=== PATIENT | female | born 1995 | race Caucasian/White ===

== ENCOUNTER 2016-05-28 11:38 | Emergency (ER) | payer OTHER ==
[2016-05-28 11:49] VITALS: BP 134/75; PULSE 78; TEMP 98.3; BMI 29.6
[2016-05-28] MEDS ORDERED: IBUPROFEN 600 MG TABLET (FP) PO ONE (12:19)
--- NOTE | 2016-05-28 12:29 | PDOC ---
History of Present Illness - General Chief Complaint: Sore Throat Stated Complaint: (DEAF) TONSILITIS, HEADACHE Time Seen by Provider: 05/28/16 11:52 History Source: Patient, Family (mother signing for patient) Exam Limitations: Physical Impairment (deaf and mute) - History of Present Illness Initial Comments: 05/28/16 12:18 21 yr female with sore throat headache for 2 days worse today. Pt has no medical history or allergies. Pt is mute mother is here signing for her as well as pt uses writing to communicate as her preference. Past History - Past Medical History Allergies/Adverse Reactions: Allergies Allergy/AdvReac Type Severity Reaction Status Date / Time No Known Allergies Allergy Verified 05/28/16 11:43 Home Medications: Ambulatory Orders Penicillin V Potassium [Pen Vee K -] 500 mg PO BID #20 tablet 05/28/16 Asthma: No Cancer: No Cardiac Disorders: No Diabetes: No HTN: No Seizures: No Thyroid Disease: No Other medical history: deaf/mute - Psycho/Social/Smoking Cessation Hx Anxiety: No Suicidal Ideation: No Smoking History: Never smoked Have you smoked in the past 12 months: No Information on smoking cessation initiated: No Hx Alcohol Use: No Drug/Substance Use Hx: No Substance Use Type: None Hx Substance Use Treatment: No Review of Systems - Review of Systems Able to Perform ROS?: Yes Is the patient limited Austrian proficient: No Constitutional: No: Symptoms Reported HEENTM: Yes: Throat Pain *Physical Exam - Vital Signs Last Vital Signs Temp Pulse Resp BP Pulse Ox 98.3 F 78 18 134/75 100 05/28/16 11:43 05/28/16 11:43 05/28/16 11:43 05/28/16 11:43 05/28/16 11:43 - Physical Exam General Appearance: Yes: Nourished, Appropriately Dressed HEENT: positive: EOMI, JADE, TMs Normal, Pharyngeal Erythema, Tonsillar Exudate , Tonsillar Erythema Neck: positive: Lymphadenopathy (R), Lymphadenopathy (L) Respiratory/Chest: positive: Lungs Clear, Normal Breath Sounds Cardiovascular: positive: Regular Rhythm, Regular Rate Musculoskeletal: positive: Normal Inspection Extremity: positive: Normal Capillary Refill, Normal Inspection Integumentary: positive: Normal Color, Warm Medical Decision Making - Medical Decision Making 05/28/16 19:01 cc: sore throat getting worse 2 days pt able to swallow well no trismus will treat for strep dc inst explained to mom and the patient *DC/Admit/Observation/Transfer Diagnosis at time of Disposition: Pharyngitis Qualifiers: Pharyngitis/tonsillitis etiology: unspecified etiology Qualified Code(s): J02.9 - Acute pharyngitis, unspecified - Discharge Dispostion Disposition: HOME Condition at time of disposition: Good - Prescriptions Prescriptions: Penicillin V Potassium [Pen Vee K -] 500 mg PO BID #20 tablet - Referrals Referrals: Jayne Heath MD [Primary Care Provider] - - Patient Instructions Additional Instructions: gargle with warm salt water 4-5 times a day soft foods for the next 24hrs lots of water to drink take motrin 600-800mg every 6hrs for pain (over the counter advil, ibuprofen, motrin) take the antibiotics for 10 days and discard your toothbrush at the end of treatment. no sharing drinks , utensils limit close contacts. follow with your primary care doctor next week as needed
[2016-05-28] MEDS ORDERED: IBUPROFEN 400 MG TABLET (FP) PO ONE (12:33)
== END 2016-05-28 12:42 | disposition home or self-care (01) ==
LOC: JERFT 11:38
DX: J02.9 Acute pharyngitis, unspecified (principal); H91.3 Deaf nonspeaking, not elsewhere classified
CPT/HCPCS: 99281-25

== ENCOUNTER 2017-05-12 11:46 | Emergency (ER) | payer OTHER ==
[2017-05-12 12:42] VITALS: BP 105/68; PULSE 71; TEMP 98.5; BMI 32.1
--- NOTE | 2017-05-12 14:21 | PDOC ---
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 no abd pain no fever or chills. pt has seen her PMD and a neurologist one year ago with no resolve. Pt states she was told there is nothing wrong however pt continues to have intermittent symptoms. no fever no chills, occasional headache relieved with advil. neg lower leg weakness neg urine or bowel dysfunction . Timing/Duration: reports: intermittent Quality: reports: mild, moderate Past History - Past Medical History Allergies/Adverse Reactions: Allergies Allergy/AdvReac Type Severity Reaction Status Date / Time No Known Allergies Allergy Verified 05/12/17 12:38 Home Medications: Ambulatory Orders NK [No Known Home Medication] 05/12/17 Asthma: No Cancer: No Cardiac Disorders: No CVA: No COPD: No DVT: No Diabetes: No HTN: No Seizures: No Thyroid Disease: No - Immunization History Immunization Up to Date: Yes - Suicide/Smoking/Psychosocial Hx Smoking History: Never smoked Have you smoked in the past 12 months: No Information on smoking cessation initiated: No Hx Alcohol Use: No Drug/Substance Use Hx: No Substance Use Type: None Hx Substance Use Treatment: No *Physical Exam - Vital Signs Last Vital Signs Temp Pulse Resp BP Pulse Ox 98.5 F 71 17 105/68 100 05/12/17 12:39 05/12/17 12:39 05/12/17 12:39 05/12/17 12:39 05/12/17 12:39 - Physical Exam General Appearance: Yes: Nourished, Appropriately Dressed HEENT: positive: EOMI, JADE, Normal ENT Inspection Neck: positive: Supple. negative: Tender Respiratory/Chest: positive: Lungs Clear, Normal Breath Sounds. negative: Chest Tender, Respiratory Distress Cardiovascular: positive: Regular Rhythm, Regular Rate Gastrointestinal/Abdominal: positive: Normal Bowel Sounds, Soft Musculoskeletal: positive: Normal Inspection Extremity: positive: Normal Capillary Refill, Normal Inspection, Normal Range of Motion Integumentary: positive: Normal Color, Dry, Warm Neurologic: positive: Fully Oriented, Alert, Normal Mood/Affect, Normal Response , Motor Strength 5/5, Finger to Nose (intact). negative: Respond to painful stimul, Responsive, EOM Palsy, Facial Droop, Numbness, Sensory Deficit, Disoriented, Depressed Affect ED Treatment Course - LABORATORY CBC & Chemistry Diagram: 05/12/17 14:50 05/12/17 14:50 Medical Decision Making - Medical Decision Making 05/12/17 14:18 cc: tingling, numbness intermittent to arms, trunk, back ,head and neck. one year or more neg chest pain neg SOB will check labs follow up with neurology I have used the deaf talk translation line 05/12/17 14:41 labs are WNL copies given to the pt and her mother in law who is able to sign with the patient. pt understands to follow up with the neurologist listed below all questions asked and answered at discharge 05/12/17 19:21 *DC/Admit/Observation/Transfer Diagnosis at time of Disposition: Paresthesia - Discharge Dispostion Disposition: HOME - Referrals Referrals: Jayne Heath MD [Primary Care Provider] - [facility] [Provider Group] - Patient Instructions Additional Instructions: follow with the neurologist for follow up call tomorrow to make appointment to see them in the office please bring copies of the lab tests with you - Post Discharge Activity
[2017-05-12 14:57] LABS: HEMATOCRIT 40.9 % (32.4-45.2); HEMOGLOBIN 13.9 GM/dL (10.7-15.3); MCH 30.2 pg (25.7-33.7); MCHC 33.8 g/dl (32.0-36.0); MEAN CELL VOLUME 89.3 fl (80-96); MEAN PLT VOLUME 9.4 fl (7.5-11.1); PLATELET COUNT 232 K/MM3 (134-434); RBC 4.59 M/mm3 (3.60-5.2); RDW 13.3 % (11.6-15.6); WHITE BLOOD COUNT 6.3 K/mm3 (4.0-10.0)
[2017-05-12 15:29] LABS: ALBUMIN 4.2 g/dl (3.4-5.0); ANION GAP 10 (8-16); BLOOD UREA NITROGEN 9 mg/dL (7-18); CALCIUM 9.2 mg/dL (8.5-10.1); CHLORIDE 101 mmol/L (98-107); CO2 26 mmol/L (21-32); CREATININE 0.7 mg/dL (0.55-1.02); GLUCOSE,RANDOM 79 mg/dL (74-106); POTASSIUM 4.1 mmol/L (3.5-5.1); SGOT/AST 35 U/L (15-37); SGPT/ALT 58 U/L (12-78); SODIUM 137 mmol/L (136-145); TOT PROT 7.9 g/dl (6.4-8.2)
[2017-05-12 15:30] LABS: ALK PHOS 107 U/L (45-117)
== END 2017-05-12 16:18 | disposition home or self-care (01) ==
LOC: JERFT 11:46
DX: R20.2 Paresthesia of skin (principal)
CPT/HCPCS: 36415; 80053; 84443; 84702; 85027; 85651; 86038; 99281-25

== ENCOUNTER 2017-10-23 00:08 | Emergency (ER) | payer OTHER ==
[2017-10-23 00:36] VITALS: BMI 30.9
[2017-10-23] MEDS ORDERED: SODIUM CHLORIDE 0.9% 500 ML INFUS.BAG IV ONE (00:41)
[2017-10-23] MEDS ORDERED: FAMOTIDINE 20 MG/50 ML IVPB 20 MG/50 ML MG IVPB ONE ×2 (00:41→01:08)
[2017-10-23] MEDS ORDERED: METOCLOPRAMIDE HCL INJECTION 10 MG/2 ML VIAL IVPUSH ONE (00:41)
--- NOTE | 2017-10-23 00:48 | PDOC ---
History of Present Illness - General Chief Complaint: Pain, Acute Stated Complaint: ABDOMINAL PAIN Time Seen by Provider: 10/23/17 00:22 History Source: Patient Exam Limitations: No Limitations - History of Present Illness Initial Comments: 10/23/17 00:42 Patient is a 22 year old female deaf c/o epigastric pain since this morning. Pain in the epgastrium is sharp, stabbing, burning and was assoc/w nausea and vomited x 2 episode. Took tums a 9am and 3 pm without relief of symptoms. Had similar episode in the pain x 3 and was diagnosed with gastritis but he pmd in [place]. PMHX: deaf PSCOHX: neg etoh, drug, cig ALL: NKDA GENERAL/CONSTITUTIONAL: [No fever or chills. No weakness. No weight change.] HEAD, EYES, EARS, NOSE AND THROAT: [No change in vision. No ear pain or discharge. No sore throat.] CARDIOVASCULAR: [No chest pain or shortness of breath.] RESPIRATORY: [No cough, wheezing, or hemoptysis.] GASTROINTESTINAL: (+) nausea, vomiting, diarrhea or constipation. No rectal bleeding.] GENITOURINARY: [No dysuria, frequency, or change in urination.] MUSCULOSKELETAL: [No joint or muscle swelling or pain. No neck or back pain.] SKIN AND BREASTS: [No rash or easy bruising.] NEUROLOGIC: [No headache, vertigo, loss of consciousness, or loss of sensation.] PSYCHIATRIC: [No depression or anxiety.] ENDOCRINE: [No increased thirst. No abnormal weight change.] HEMATOLOGIC/LYMPHATIC: [No anemia, easy bleeding, or history of blood clots.] ALLERGIC/IMMUNOLOGIC: [No hives or skin allergy. No latex allergy.] GENERAL: [The patient is awake, alert, and fully oriented, in mild distress.] HEAD: [Normal with no signs of trauma.] EYES: [Pupils equal, round and reactive to light, extraocular movements intact, sclera anicteric, conjunctiva clear.] ENT: [Ears normal, nares patent, oropharynx clear without exudates. Moist mucous membranes.] NECK: [Normal range of motion, supple without lymphadenopathy, JVD, or masses.] LUNGS: [Breath sounds equal, clear to auscultation bilaterally. No wheezes, and no crackles.] HEART: [Regular rate and rhythm, normal S1 and S2 without murmur, rub.] ABDOMEN: [Soft, tenderness epigastrum, normoactive bowel sounds. No guarding, no rebound. No masses.] EXTREMITIES: [Normal range of motion, no edema. No clubbing or cyanosis. No cords, erythema, or tenderness.] NEUROLOGICAL: [Cranial nerves II through XII grossly intact. Normal speech, normal gait.] PSYCH: [Normal mood, normal affect.] SKIN: [Warm, Dry, normal turgor, no rashes or lesions noted.] Past History - Past Medical History Allergies/Adverse Reactions: Allergies Allergy/AdvReac Type Severity Reaction Status Date / Time No Known Allergies Allergy Verified 05/12/17 12:38 Home Medications: Ambulatory Orders Famotidine [Pepcid] 20 mg PO DAILY #14 tablet 10/23/17 Sucralfate Oral Suspension [Carafate *Oral Susp*] 1 gm PO QID #30 gm 10/23/17 Asthma: No Cancer: No Cardiac Disorders: No CVA: No COPD: No DVT: No Diabetes: No HTN: No Seizures: No Thyroid Disease: No - Immunization History Immunization Up to Date: Yes - Suicide/Smoking/Psychosocial Hx Smoking History: Never smoked Have you smoked in the past 12 months: No Information on smoking cessation initiated: No Hx Alcohol Use: No Drug/Substance Use Hx: No Substance Use Type: None Hx Substance Use Treatment: No *Physical Exam - Vital Signs Last Vital Signs Temp Pulse Resp BP Pulse Ox 97.5 F L 80 20 131/90 99 10/23/17 00:35 10/23/17 00:35 10/23/17 00:35 10/23/17 00:35 10/23/17 00:35 ED Treatment Course - LABORATORY CBC & Chemistry Diagram: 10/23/17 01:10 10/23/17 03:20 Medical Decision Making - Medical Decision Making 10/23/17 00:42 Patient is a 22 year old female deaf c/o epigastric pain since this morning. Symptoms most consistent with gastritis. Bedside US done showed gallstones will get official US labs, pain meds, GI cocktail re-eval 10/23/17 02:58 Patient Full Name: ARDHA DELGADO Patient Accession No: [id number] Patient : 1995 Reason for Exam: epigastric and ruq pain Referring Physician: Patient Name: DANNY GARCIA THIS IS A PRELIMINARY REPORT FROM [facility] DATE OF SERVICE: 2017-10-23 01:37:30 IMAGES: 42 EXAM: ULTRASOUND ABDOMEN INCOMPLETE Borderline hepatomegaly. Coarse liver echotexture, possibly steatosis. Cholelithiasis without acute cholecystitis. Unremarkable right kidney and visualized aorta. Slightly prominent pancreatic tail, 2.9 cm thick, possibly artifact due to obliquity. Top normal common duct diameter, 6 mm. THIS DOCUMENT HAS BEEN ELECTRONICALLY SIGNED Sue Whitehead M.D. 10/23/2017 02:27 YVETTE Farfan. Please call [facility] [phone] ([phone]) with questions. INTERPRETING RADIOLOGIST: Sue Whitehead MD Electronically Signed: Oct 23, 2017 02:28AM EDT 10/23/17 04:33 Still c/o pain given Carafate US report discussed I discussed the physical exam findings, ancillary test results and final diagnoses with the patient. I answered all of the patient's questions. The patient was satisfied with the care received and felt comfortable with the discharge plan and treatment plan. The Patient agrees to follow up with the primary care physician within 24-72 hours. *DC/Admit/Observation/Transfer Diagnosis at time of Disposition: Nausea and vomiting Qualifiers: Vomiting type: unspecified Vomiting Intractability: unspecified Qualified Code( s): R11.2 - Nausea with vomiting, unspecified - Discharge Dispostion Disposition: HOME Condition at time of disposition: Stable - Prescriptions Prescriptions: Famotidine [Pepcid] 20 mg PO DAILY #14 tablet Sucralfate Oral Suspension [Carafate *Oral Susp*] 1 gm PO QID #30 gm - Referrals Referrals: Jayne Heath MD [Primary Care Provider] - Scottie Lemus MD [Staff Physician] - Wilmar Montez MD [Staff Physician] - - Patient Instructions Printed Discharge Instructions: DI for Gastritis Additional Instructions: Your Discharge Instructions: You must call primary care physician within 24 hours to arrange follow-up. Return to the Emergency Department with any new, persistent or worsening symptoms, for fever, nausea, vomiting, chills, SOB, dizziness or any other concerning changes that may occur. Take pepcid, maalox or omeprazole for your symptoms. - Post Discharge Activity
[2017-10-23] MEDS ORDERED: LIDOCAINE VISCOUS 2% ORAL/TOP 20 ML UNIT-DOSE CUP MM ONE (00:55)
[2017-10-23] MEDS ORDERED: MAG HYDROX/AL HYDROX/SIMETH 30 ML UNIT-DOSE CUP PO ONE (00:55)
[2017-10-23] MEDS ORDERED: METOCLOPRAMIDE HCL INJECTION 10 MG/2 ML VIAL ONE (01:07)
[2017-10-23] MEDS ORDERED: LIDOCAINE VISCOUS 2% ORAL/TOP 20 ML UNIT-DOSE CUP ONE (01:07)
[2017-10-23] MEDS ORDERED: MAG HYDROX/AL HYDROX/SIMETH 30 ML UNIT-DOSE CUP ONE (01:07)
[2017-10-23 01:30] LABS: BASO % 0.6 % (0-2.0); EOS % 0.6 % (0-4.5); HEMATOCRIT 42.7 % (32.4-45.2); HEMOGLOBIN 14.6 GM/dL (10.7-15.3); LYMPH % 34.1 % (8-40); MCH 30.9 pg (25.7-33.7); MCHC 34.1 g/dl (32.0-36.0); MEAN CELL VOLUME 90.4 fl (80-96); MEAN PLT VOLUME 9.2 fl (7.5-11.1); MONO % 8.9 % (3.8-10.2); NEUT % 55.8 % (42.8-82.8); PLATELET COUNT 247 K/MM3 (134-434); RBC 4.73 M/mm3 (3.60-5.2); RDW 12.8 % (11.6-15.6); WHITE BLOOD COUNT 8.2 K/mm3 (4.0-10.0)
[2017-10-23 04:05] LABS: ALBUMIN 3.9 g/dl (3.4-5.0); ANION GAP 7 (8-16); BILIRUBIN,TOTAL 0.6 mg/dL (0.2-1.0); BLOOD UREA NITROGEN 13 mg/dL (7-18); CALCIUM 9.1 mg/dL (8.5-10.1); CHLORIDE 104 mmol/L (98-107); CO2 29 mmol/L (21-32); CREATININE 0.7 mg/dL (0.55-1.02); GLUCOSE,RANDOM 88 mg/dL (74-106); LIPASE 87 U/L (73-393); POTASSIUM 3.7 mmol/L (3.5-5.1); SGOT/AST 29 U/L (15-37); SGPT/ALT 54 U/L (12-78); SODIUM 140 mmol/L (136-145); TOT PROT 7.3 g/dl (6.4-8.2)
[2017-10-23 04:06] LABS: ALK PHOS 104 U/L (45-117)
[2017-10-23] MEDS ORDERED: SUCRALFATE 1 GM/10 ML UNIT DOSE CUPS PO ONE (04:21)
[2017-10-23] MEDS ORDERED: SUCRALFATE 1 GM TABLET (FP) ONE (04:29)
[2017-10-23 05:25] VITALS: BP 122/71; PULSE 77; TEMP 98.4
== END 2017-10-23 05:04 | disposition home or self-care (01) ==
LOC: JER 00:08
PROC: 3E033GC Introduction of Other Therapeutic Substance into Peripheral Vein, Percutaneous Approach (ICD-10-PCS; principal; 2017-10-23)
PROC: 3E033GC Introduction of Other Therapeutic Substance into Peripheral Vein, Percutaneous Approach (ICD-10-PCS; 2017-10-23)
DX: K80.20 Calculus of gallbladder without cholecystitis without obstruction (principal); H91.93 Unspecified hearing loss, bilateral
CPT/HCPCS: 36415; 76705-TC; 80053; 82150; 83690; 84702; 85025; 96365; 96374; 99282-25